=== PATIENT | female | born 1965 | race Caucasian/White ===

== ENCOUNTER 2017-12-07 14:30 | Outpatient (RCR) | payer MEDICAID, SELFPAY | END 2017-12-09 14:31 | LOC: NS 14:30 | PROVIDERS: Visit Provider Nurse Practitioner Family | DX: E66.9 Obesity, unspecified (principal); Z68.34 Body mass index [BMI] 34.0-34.9, adult; Z71.3 Dietary counseling and surveillance | CPT/HCPCS: 97802; 97803 ==

== ENCOUNTER 2018-10-18 10:19 | Emergency (ER) | payer OTHER, SELFPAY ==
[2018-10-18 10:21] VITALS: BP 118/72; PULSE 68; RESP 12; TEMP 36.6; O2SAT 100; BMI 35.2
--- NOTE | 2018-10-18 10:52 | CT_ITS ---
STUDY: CT CHEST WITHOUT CONTRAST REASON FOR EXAM: Female, 53 years old. Trauma, hit right side of the chest with right rib pain RADIATION DOSAGE (If Supplied By Facility): CTDIvol = ( 16.49 ) mGy, DLP = ( 564.63 ) mGycm TECHNIQUE: Transaxial imaging was performed without the administration of intravenous contrast material. Individualized dose optimization techniques were used for this CT. COMPARISON: None. FINDINGS: There is trace atelectasis or scarring at the right posterior costophrenic angle. There is no demonstrated pleural abnormality. Normal heart and pericardium. There are trace coronary artery calcifications. There is no mediastinal or axillary adenopathy by size criteria. There are shoddy mediastinal lymph nodes. No bulky hilar adenopathy. There is a calcified subcarinal lymph node which may be due to prior granulomatous disease. The ascending aorta measures 3.7 cm in AP dimension. Normal aorta arch and descending thoracic aorta. There is no acute fracture. There is multilevel degenerative disc disease. There is a small Schmorl's node of the T3 superior endplate. There are scattered calcifications in the spleen likely due to chronic granulomatous disease. There is a moderate hiatal hernia CT/Chest without Contrast IMPRESSION: No acute fracture. The lungs are clear. Ascending aorta measures 3.7 cm. Moderate hiatal hernia. Electronically Signed: Kodak Rader, at 11:28 EST Tel , Service support ,
--- NOTE | 2018-10-18 12:01 | ED.DCSUM_ITS ---
- ER Visit Summary Date of Service: 10/18/18 Chief Complaint: Fall on ice History of Present Illness: The patient is a 53 F who states that today she was at work getting out of her elevated jeep when she slipped on the ice striking her chest against the door and falling onto her right hip. She notes pain in the right upper chest wall and into the upper thoracic back. It is worse with movement and deep breathing. Patient states that if she test positive for marijuana on a drug screen it is because a patient she was caring for most of smoked marijuana in the room before she came in because she could smell it. Physical Examination: Afebrile vital signs stable Patient has tenderness to palpation over the right anterior chest wall. I do not appreciate ecchymosis. There are equal breath sounds bilaterally. Patient has tenderness over the upper thoracic on the right side. Neurovascular intact. Test Results: CT the chest does not demonstrate any fractures. There is no associated pneumothorax. Emergency Department Course and Treatment: Patient is finally [employer]. She will follow-up with [facility] care. Impression: 1. Chest wall contusion 2. Thoracic muscle strain This note was generated with [employer] dictation software. It may contain incorrect words, spelling, and punctuation that were not noted in review of the chart prior to signing ED Disposition - Plan for ED Patient: Disposition: Home or Assisted Living Instructions: ED Contusion Chest Wall [facility] [GROUP OF PHYSICIANS] -
[2018-10-18 12:09] VITALS: BP 121/74; PULSE 68; RESP 16; O2SAT 98
== END 2018-10-18 12:10 | disposition home or self-care (01) ==
PROVIDERS: Emergency Provider Emergency Medicine; Family Provider Preventive Medicine Occupational Medicine; PCP Preventive Medicine Occupational Medicine
DX: S20.211A Contusion of right front wall of thorax, initial encounter (principal); S29.011A Strain of muscle and tendon of front wall of thorax, initial encounter; V48.4XXA Person boarding or alighting a car injured in noncollision transport accident, initial encounter; Y93.9 Activity, unspecified; Y92.89 Other specified places as the place of occurrence of the external cause; Y99.0 Civilian activity done for income or pay; I10 Essential (primary) hypertension; M81.0 Age-related osteoporosis without current pathological fracture; Z72.0 Tobacco use; Z79.899 Other long term (current) drug therapy
CPT/HCPCS: 71250; 99283

== ENCOUNTER → 2020-07-07 | Outpatient (CLI) | payer MEDICAID, SELFPAY ==
[2020-07-07 13:38] VITALS: BMI 33.6
== END | disposition home or self-care (01) ==
PROVIDERS: Referring Provider Physician Assistant Surgical; Visit Provider Physician Assistant Surgical
DX: Z20.828 Contact with and (suspected) exposure to other viral communicable diseases (principal)
CPT/HCPCS: 87635; U0003

== ENCOUNTER → 2021-05-02 08:45 | Outpatient (CLI) | payer MEDICAID, SELFPAY ==
[2021-05-02 11:18] LABS: AST(SGOT) 13 U/L (15-37); Alanine Aminotransfer ALT/SGPT 27 U/L (13-56); Albumin, Serum 3.5 g/dL (3.2-5.0); Alkaline Phosphatase 102 U/L (45-117); Anion Gap 6 (5-15); BUN 11 mg/dL (7-18); BUN/Creat Ratio 13.1 RATIO (10-20); Calcium,Total 9.2 mg/dL (8.5-10.1); Chloride 108 mmol/L (98-107); Cholesterol 129 mg/dL (200); Creatinine, Serum 0.84 mg/dL (0.55-1.02); EST Glomerular Filtration Rate 75 mL/min (>60); Est Glom Filt Rate - Afr Amer 91 mL/min (>60); Globulin 3.5 g/dL (2.2-4.2); Glucose 93 mg/dL (74-106); High Density Lipoprotein 44 mg/dL; Potassium 4.1 mmol/L (3.5-5.1); Sodium Level 141 mmol/L (136-145); Triglycerides 137 mg/dL; Very Low Density Lipoprotein 27 mg/dL (5-40)
[2021-05-02 11:23] LABS: Microalbumin,Random Urine 5.1 mg/L (NO RANGE EST.)
[2021-05-02 12:07] LABS: Hemoglobin A1c 5.8 % (3.8-5.6)
== END ==
PROVIDERS: PCP Preventive Medicine Occupational Medicine; Visit Provider Preventive Medicine Occupational Medicine
DX: Z01.84 Encounter for antibody response examination (principal); I10 Essential (primary) hypertension; R73.9 Hyperglycemia, unspecified; E78.2 Mixed hyperlipidemia
CPT/HCPCS: 36415; 80053; 80061; 82043; 83036; 86769